=== PATIENT | female | born 1990 | race Caucasian/White ===

== ENCOUNTER 2019-04-25 22:14 | Inpatient (IN) ==
[2019-04-25] MEDS ORDERED: OXYTOCIN 30 UNITS/500 ML BAG IV PRN (22:51)
--- NOTE | 2019-04-25 22:57 | History & Physical Report ---
Date of Service April 25, 2019 Assessment & Plan (1) Term : (2) SROM (spontaneous rupture of membranes): admit, iv, labs. given initial bp, will check creat, lfts as well. see if develops spont labor pattern. if not will add pitocin. pt aware. fhts categ 1. History of Present Illness Chief Complaint: Leaking fluid since 905pm tonight. clear with white chunks. Primary Care Provider: Jazmine Maradiaga, DO 28yo at 39+wks ega presents to L&D with above cc. Noting some ctx now. continued trickle of fluid. +fm. no vb. pnc c/b 1. 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 Beliefs That Will Affect Care: None marital status: Current Living Situation: Spouse Other Information That Helps Us Care for You: No Feels Safe at Home: Yes Safety Concerns: Feels Safe At This Time Smoking Status: Never smoker Hx Alcohol Use: No Hx Substance Use: No Physical Exam Constitutional: WD/WN, vitals as above Respiratory: normal respiratory effort, lungs clear to auscultation Cardiovascular: Rate/Rhythm: regular rate and regular rhythm Gastrointestinal (Abdomen): Percussion/Palpation: abdomen soft (gravid efw 7#); abdomen nontender Neurologic: grossly normal Psychiatric: A+Ox3, euthymic affect Genitourinary: Manual OB Exam: + cervical dilation 3 cm, + cervical effacement 90%, + station -2 and + amniotic fluid (SROM, gross) clear and nitrazine positive OB Exam Monitor Tracing: + external FHT monitor used (130 mod variability), + external uterine monitor used (q2-3 with irritability), + category I and + normal FHT variability Results & Data Vital Signs (Past 12 Hours) Vital Signs Temp Pulse Resp BP 04/25/19 22:35 87 142/84 H 04/25/19 22:33 98.1 F 20
[2019-04-25 23:07] LABS: Hemoglobin 13.1 g/dL (12.0-16.0); Mean Corpuscular Hemoglobin 31.9 pg (25-34); Mean Corpuscular Volume 92.5 fL (80-100); Mean Platelet Volume 10.8 fL (7.4-10.4); Platelet Count 218 K/uL (130-400); RDW Coefficient of Variation 12.6 % (11.5-14.5); RDW Standard Deviation 42.4 fL (36.4-46.3); Red Blood Count 4.11 M/uL (4.2-5.4); White Blood Count 15.33 K/uL (4.8-10.8)
[2019-04-25 23:26] LABS: Albumin Level 2.8 gm/dl (3.4-5.0); BUN Creatinine Ratio 10.3 (10-20); Calcium 8.4 mg/dl (8.5-10.1); Creatinine Clr Calc Pharmacy 61.8 ml/min; Est GFR (Non-African American) 57.8; Potassium 3.6 mmol/L (3.5-5.1)
[2019-04-25 23:29] LABS: Albumin Globulin Ratio 0.7 (0.9-2); Bilirubin,Total 0.3 mg/dl (0.2-1); Globulin 4.1 gm/dl (2.5-4.0); Total Protein 6.9 gm/dl (6.4-8.2)
[2019-04-25 23:37] LABS: Mean Corpuscular Hgb Conc 34.5 g/dL (32-36)
[2019-04-26] MEDS: LACTATED RINGER'S 1,000 ML IV PRN ×3 (00:45→10:00)
[2019-04-26] MEDS ORDERED: ePHEDrine sulfate 50 MG/ML AMP ONE (00:48)
[2019-04-26] MEDS ORDERED: fentaNYL citrate 100 MCG/2 ML VIAL ONE (00:48)
[2019-04-26] MEDS ORDERED: BUPIVACAINE 0.25% 30 ML VIAL ONE (00:48)
[2019-04-26] MEDS ORDERED: fentaNYL 2MCG/ML ROPIV 1.25MG/ML 100 ML BAG EPI ONE (00:49)
--- NOTE | 2019-04-26 00:49 | Labor Progress Brief Note ---
Date of Service April 26, 2019 Subjective Reason For Note: Routine Evaluation and Requested By Patient pt noting increased pain with ctx. wants pain relief Assessment & Plan (1) Term : (2) SROM (spontaneous rupture of membranes): good cx change. desires epidural. fhts categ 1 Physical Exam Constitutional: WD/WN, vitals as above Genitourinary: Manual OB Exam: + cervical dilation 4 cm, + cervical effacement 100% and + station -1 OB Exam Monitor Tracing: + external FHT monitor used (125mod variability ), + external uterine monitor used (q2), + category I and + normal FHT variability Results & Data Vital Signs (Past 12 Hours) Vital Signs Temp Pulse Resp BP 04/26/19 00:14 76 143/84 H 04/25/19 23:00 20 04/25/19 22:40 18 04/25/19 22:35 87 142/84 H 04/25/19 22:33 98.1 F 20
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
[2019-04-26] MEDS ORDERED: NALOXONE HCL 0.4 MG/1 ML VIAL/CARP IV PRN (01:20)
[2019-04-26] MEDS ORDERED: ONDANSETRON INJ 2 MG/ML 2 ML VIAL IV PRN (01:20)
[2019-04-26] MEDS ORDERED: ePHEDrine sulfate 50 MG/ML AMP IV PRN (01:20)
[2019-04-26] MEDS ORDERED: DiphenhydrAMINE HCL 50 MG/ML VIAL IV PRN (01:20)
[2019-04-26] MEDS ORDERED: fentaNYL 2MCG/ML ROPIV 1.25MG/ML 100 ML BAG EPI PRN (01:20)
[2019-04-26] MEDS ORDERED: NALBUPHINE HCL INJ 10 MG/ML AMP IV PRN (01:20)
[2019-04-26] MEDS ORDERED: NALOXONE HCL 1 MG in SODIUM CHLORIDE 0.9% 1000ML 1,000 ML IV PRN (01:20)
[2019-04-26 02:14] LABS: Creatinine Urine Random 89.8 mg/dl; Protein Creatinine Ratio Urine 0.1 (0-0.2); Total Protein Urine Random 10.7 mg/dl (0-11.9)
[2019-04-26] MEDS ORDERED: OXYTOCIN 30 UNITS/500 ML BAG IV PRN ×2 (09:00→13:13)
--- NOTE | 2019-04-26 09:04 | Labor Progress Brief Note ---
Date of Service April 26, 2019 Subjective Patient pushing for about 1 hour per RN. Feels comfortable, has no urge to push but pushes with excellent effort when coached through each contraction. Assessment & Plan (1) Gestational hypertension: Patient admitted for SROM/Labor and has progressed to what was felt to be complete dilation, and has been pushing for about an hour. At this time I do not feel cervix is completely out of the way, and advise that since patient is able to rest without urge, that she do so until we confirm remaining cervix is gone. Will start pitocin as contractions are not Q2min and hopefully will help reduce cervix and make second stage more efficient. Patient expresses understanding. Trimester: third trimester Qualified Code(s): O13.3 - Gestational [-induced] hypertension without significant proteinuria, third trimester Present on Admission?: Yes Physical Exam Physical Exam: FHT Cat 1 Flowing Wells Q4-5 Cvx 100% effaced, but anterior lip is moving forward with each push, and is able to be manually reduced back over head by doctor's fingers. No swelling in the lip. But it does not stay back after it is reduced; comes forward again with each push. Fetus in DOA presentation, molding / caput both present. Results & Data Vital Signs (Past 12 Hours) Vital Signs Temp Pulse Resp BP Pulse Ox 04/26/19 08:56 112 H 98 04/26/19 08:51 91 H 97 04/26/19 08:46 86 98 04/26/19 08:44 103 H 140/62 04/26/19 08:41 91 H 97 04/26/19 08:36 108 H 98 04/26/19 08:31 101 H 99 04/26/19 08:28 97 H 136/68 04/26/19 08:26 100 H 98 04/26/19 08:21 105 H 100 04/26/19 08:16 123 H 99 04/26/19 08:12 100 H 128/61 04/26/19 08:11 101 H 100 04/26/19 08:06 91 H 99 04/26/19 08:01 88 99 04/26/19 07:57 80 131/69 04/26/19 07:56 91 H 99 04/26/19 07:51 91 H 100 04/26/19 07:46 122 H 100 04/26/19 07:43 80 141/72 H 04/26/19 07:41 77 100 04/26/19 07:36 85 100 04/26/19 07:31 75 100 04/26/19 07:27 75 137/66 04/26/19 07:26 74 100 04/26/19 07:21 78 100 04/26/19 07:16 77 100 04/26/19 07:13 99.3 F 81 22 138/87 04/26/19 07:11 81 100 04/26/19 07:06 80 100 04/26/19 07:05 80 89 L 04/26/19 07:01 75 100 04/26/19 06:58 76 134/75 04/26/19 06:56 82 97 04/26/19 06:51 90 91 04/26/19 06:46 74 100 04/26/19 06:43 71 130/67 04/26/19 06:41 82 99 04/26/19 06:37 98.4 F 04/26/19 06:36 75 100 04/26/19 06:31 76 99 04/26/19 06:28 71 137/70 04/26/19 06:26 72 100 04/26/19 06:21 75 100 04/26/19 06:16 74 100 04/26/19 06:13 78 130/74 04/26/19 06:11 72 100 04/26/19 06:06 75 100 04/26/19 06:01 73 100 04/26/19 05:58 71 140/82 04/26/19 05:56 74 100 04/26/19 05:51 75 100 04/26/19 05:46 72 100 04/26/19 05:43 72 134/66 04/26/19 05:41 73 100 04/26/19 05:36 73 99 04/26/19 05:31 77 100 04/26/19 05:28 75 129/66 04/26/19 05:26 75 100 04/26/19 05:21 93 H 100 04/26/19 05:16 75 100 04/26/19 05:12 80 130/74 04/26/19 05:11 76 100 04/26/19 05:06 71 100 04/26/19 05:01 75 100 04/26/19 04:58 76 132/76 04/26/19 04:56 79 100 04/26/19 04:51 69 100 04/26/19 04:46 71 100 04/26/19 04:44 74 145/79 H 04/26/19 04:41 72 100 04/26/19 04:36 83 100 04/26/19 04:31 75 100 04/26/19 04:28 97.9 F 79 18 128/73 04/26/19 04:26 74 100 04/26/19 04:21 66 100 04/26/19 04:16 67 100 04/26/19 04:13 70 137/85 04/26/19 04:11 69 100 04/26/19 04:06 71 100 04/26/19 04:01 68 100 04/26/19 03:58 66 151/83 H 04/26/19 03:56 68 100 04/26/19 03:51 69 99 04/26/19 03:46 67 98 04/26/19 03:43 66 140/72 04/26/19 03:41 70 100 04/26/19 03:36 73 100 04/26/19 03:31 70 100 04/26/19 03:27 69 139/83 04/26/19 03:26 69 100 04/26/19 03:21 67 100 04/26/19 03:16 71 100 04/26/19 03:14 73 137/84 04/26/19 03:11 68 100 04/26/19 03:06 75 100 04/26/19 03:01 77 100 04/26/19 02:59 68 149/80 H 04/26/19 02:56 67 100 04/26/19 02:51 78 100 04/26/19 02:46 68 98 04/26/19 02:45 18 04/26/19 02:42 71 139/74 04/26/19 02:41 81 100 04/26/19 02:36 98.1 F 82 18 99 04/26/19 02:31 73 100 04/26/19 02:30 18 04/26/19 02:27 68 148/81 H 04/26/19 02:26 69 100 04/26/19 02:21 71 98 04/26/19 02:16 72 99 04/26/19 02:15 18 04/26/19 02:13 75 142/75 H 04/26/19 02:11 85 98 04/26/19 02:06 74 99 04/26/19 02:01 76 99 04/26/19 02:00 18 04/26/19 01:57 72 139/67 04/26/19 01:56 72 99 04/26/19 01:51 74 100 04/26/19 01:49 71 140/65 04/26/19 01:46 75 99 04/26/19 01:45 18 04/26/19 01:41 70 100 04/26/19 01:36 79 100 04/26/19 01:31 69 100 04/26/19 01:27 72 143/70 H 04/26/19 01:26 77 100 04/26/19 01:24 82 142/73 H 04/26/19 01:22 72 151/86 H 04/26/19 01:21 71 100 04/26/19 01:19 71 136/92 04/26/19 01:17 75 136/75 04/26/19 01:16 79 100 04/26/19 01:14 82 93 04/26/19 01:11 80 100 04/26/19 01:09 96 H 151/70 H 04/26/19 01:06 80 160/90 H 100 04/26/19 01:01 90 98 04/26/19 00:14 97.5 F L 76 143/84 H 04/25/19 23:00 20 04/25/19 22:40 18 04/25/19 22:35 87 142/84 H 04/25/19 22:33 98.1 F 20
--- NOTE | 2019-04-26 13:04 | Delivery Summary ---
Vaginal Delivery Summary Date of Service April 26, 2019 Vaginal Delivery Summary DIAGNOSES: 1. Woods intrauterine at 39 1/7 gestation. 2. Spontaneous onset of labor. 3. Group B Streptococcus Neg. PROCEDURE: Spontaneous vaginal delivery and repair of 2nd degree midline episiotomy. SURGEON: Evelyn Murphy MD. TANK SYSTEMS MAINTAINER: None. ESTIMATED BLOOD LOSS: 300 mL. COMPLICATIONS: None. PLACENTA: Spontaneous and intact with a 3-vessel cord. DISPOSITION: Stable to labor and delivery. DESCRIPTION: The patient pushed well and brought the head to in SEAN position. The second stage had lasted a total of over 3 hours and the phase was prolonged. The patient was becoming exhausted. She was offered VAVD and/or episiotomy to expedite delivery. She elected for episiotomy. The perineum was infiltrated with 8cc 1% plain lidocaine. With the next push, bandage scissors were used to create a small midline episiotomy. With the following maternal pushing effort, the infant's head delivered. The shoulders delivered easily with a maternal pushing effort. There was a loose nuchal cord. The right shoulder was anterior. The shoulders and body delivered without any difficulty, and the was placed on the maternal abdomen. It was vigorous and moving all extremities, and making respiratory efforts. The cord was doubly clamped by the MD and then cut by the FOB. The placenta delivered spontaneously and was noted to be intact and with a 3VC as well as a succenturiate lobe. The cervix, vagina and perineum were examined and were found to have only the episiotomy, without extension, which was repaired as per usual for a second degree laceration, including a crown suture. There was also a left labial abrasion which was hemostatic and not repaired. The fundus was firm and lochia minimal immediately after delivery.
[2019-04-26] MEDS ORDERED: DIPHTHERIA/TETANUS/PERTUSSIS 0.5 ML SYR/VIAL IM ONE (13:13)
[2019-04-26] MEDS ORDERED: BENZOCAINE 20% AER SPR 82.5 GM CAN EXT PRN (13:13)
[2019-04-26] MEDS ORDERED: OXYCODONE/ACETAMINOPHEN 5mg/325mg TAB PO PRN (13:13)
[2019-04-26] MEDS ORDERED: SUPERCREAM 0.870% 15 GM JAR EXT PRN (13:13)
[2019-04-26] MEDS ORDERED: HYDROCORTISONE ACETATE 25 MG SUPP PR PRN (13:13)
[2019-04-26] MEDS ORDERED: ACETAMINOPHEN 325 MG TAB PO PRN (13:13)
[2019-04-26] MEDS ORDERED: LACTATED RINGER'S 1,000 ML IV SCH (13:20)
[2019-04-26] MEDS: IBUPROFEN 600 MG TAB PO PRN (13:22)
--- NOTE | 2019-04-26 14:25 | Anesthesia Procedure Note ---
Date of Service April 26, 2019 Anesthesia Post Epidural Note Vital Signs Vital Signs: Temp Pulse Resp BP Pulse Ox 37.1 C 99 H 20 128/66 99 04/26/19 13:19 04/26/19 14:19 04/26/19 13:19 04/26/19 14:19 04/26/19 12:41 Pain Intensity Abdomen: Pain Intensity: 1 Notes Mental Status: alert / awake / arousable and participated in evaluation Nausea / Vomiting: adequately controlled Pain: adequately controlled Airway Patency, RR, SpO2: stable & adequate BP & HR: stable & adequate Hydration State: stable & adequate Neuraxial Anesthesia: was administered and sensory block is resolving Anesthetic Complications: no major complications apparent
[2019-04-26] MEDS: DOCUSATE SODIUM 100 MG CAP PO SCH (20:08)
[2019-04-27 06:55] LABS: Hematocrit (blood only) 32.6 % (37-47); Hemoglobin 11.2 g/dL (12.0-16.0); Mean Corpuscular Hemoglobin 31.7 pg (25-34); Mean Corpuscular Hgb Conc 34.4 g/dL (32-36); Mean Corpuscular Volume 92.4 fL (80-100); Mean Platelet Volume 10.4 fL (7.4-10.4); Platelet Count 208 K/uL (130-400); RDW Standard Deviation 43.7 fL (36.4-46.3); Red Blood Count 3.53 M/uL (4.2-5.4); White Blood Count 23.81 K/uL (4.8-10.8)
[2019-04-27 07:25] LABS: BUN Creatinine Ratio 13.7 (10-20); Calcium 8.2 mg/dl (8.5-10.1); Creatinine Clr Calc Pharmacy 78.5 ml/min; Est GFR (African American) 89.4; Est GFR (Non-African American) 77.2; Potassium 3.6 mmol/L (3.5-5.1)
[2019-04-27 07:29] LABS: Albumin Globulin Ratio 0.6 (0.9-2); Bilirubin,Total 0.5 mg/dl (0.2-1); Globulin 3.2 gm/dl (2.5-4.0); Total Protein 5.2 gm/dl (6.4-8.2)
--- NOTE | 2019-04-27 07:43 | Obstetrical Progress Note ---
Date of Service <Darline Moreno MD - Last Filed: 04/27/19 07:43> April 27, 2019 Assessment & Plan <Darline Moreno MD - Last Filed: 04/27/19 07:43> (1) Encounter for care and examination after delivery: 28 yo PPD1 s/p complicated by gestational HTN. Blood pressures have been within normal range since mid afternoon yesterday without medication. Ambulating, tolerating regular diet, bottle feeding. Continue supportive care. Discharge home tomorrow. Day #:: 1 Subjective <Darline Moreno MD - Last Filed: 04/27/19 07:43> Ambulation: ambulating normally Voiding: no voiding problems Passing Gas:: Yes Diet Tolerance:: regular diet Lochia:: Moderate Feeding Type:: bottle feeding Current Pain Level(1-10): 0 Physical Exam <Darline Moreno MD - Last Filed: 04/27/19 07:43> Constitutional well developed and well nourished Respiratory normal respiratory effort; no respiratory distress, no labored breathing and no cough Auscultation: no crackles, no rales, no rhonchi and no wheezes Cardiovascular Rate/Rhythm: regular rate and regular rhythm Heart Sounds: no gallop, no murmur and no cardiac rub Extremities: no pedal edema Gastrointestinal (Abdomen) Inspection/Auscultation: + abdomen distended and normal bowel sounds Percussion/Palpation: abdomen soft; abdomen nontender and no guarding Genitourinary Uterus firm, palpable at umbilicus, nontender to palpation. Results & Data <Darline Moreno MD - Last Filed: 04/27/19 07:43> Vital Signs (Past 12 Hours) Vital Signs Temp Pulse Resp BP 04/27/19 03:35 36.6 C 73 18 116/71 04/26/19 23:05 36.7 C 69 18 121/72 <Evelyn Murphy MD - Last Filed: 04/27/19 08:49> Co-Signing Physician Notes I have reviewed the resident's note and examined the patient myself, and agree with the note above. The creatinine level is normalizing and now dropped to 1. Would anticipate this continues to drop but at this point would not require further serial labs for discharge home. Resident Activity Tracking <Darline Moreno MD - Last Filed: 04/27/19 07:43> Resident Involvement: Resident Care Provided Care Provided: OB Delivery
[2019-04-27] MEDS: DOCUSATE SODIUM 100 MG CAP PO SCH ×2 (09:05→20:27)
[2019-04-27] MEDS: PRENATAL VITAMIN 1 TAB PO SCH (09:05)
[2019-04-27] MEDS: IBUPROFEN 600 MG TAB PO PRN (15:26)
--- NOTE | 2019-04-28 06:20 | Obstetrical Progress Note ---
Date of Service <Darline Moreno MD - Last Filed: 04/28/19 07:01> April 28, 2019 Assessment & Plan <Darline Moreno MD - Last Filed: 04/28/19 07:01> (1) Encounter for care and examination after delivery: 28 yo F PPD2 s/p , complicated by Gestational HTN. Blood pressures have been within normal range since day of delivery. Highest in last 24 hours was 140/82. Re-ordered liver panel this AM to trend values. AST stable at 52, ALT 44, Alk Phos down to 125. WBC elevated at 23.81 yesterday, up from 15.33 04/26 but patient has been afebrile, describes no subjective symptoms of infection. Discharge home today with close follow up. Day #:: 2 Subjective <Darline Moreno MD - Last Filed: 04/28/19 07:01> Ambulation: limited ambulation Voiding: no voiding problems Passing Gas:: Yes Diet Tolerance:: regular diet Lochia:: Small Feeding Type:: bottle feeding Current Pain Level(1-10): 0 Doing well this AM. No complaints. Constitutional: + fatigue; no fever and no chills Respiratory: no cough and no dyspnea No shortness of breath Cardiovascular: + edema; no chest pain, no syncope and no calf pain Breast: no breast pain Gastrointestinal: no abdominal pain, no nausea, no vomiting, no cramping, no constipation and no diarrhea/loose stools Genitourinary (female): no dysuria and no difficulty urinating Neurologic: no headache(s) Physical Exam <Darline Moreno MD - Last Filed: 04/28/19 07:01> Constitutional well developed and well nourished Respiratory normal respiratory effort; no respiratory distress, no labored breathing and no cough Auscultation: no crackles, no rales, no rhonchi and no wheezes Cardiovascular Rate/Rhythm: regular rate and regular rhythm Heart Sounds: no gallop, no murmur and no cardiac rub Extremities: no pedal edema Gastrointestinal (Abdomen) Inspection/Auscultation: + abdomen distended and normal bowel sounds Percussion/Palpation: abdomen soft; no guarding Musculoskeletal no tenderness to palpation of calves bilaterally Genitourinary Uterus small and firm, palpable in midline at level of umbilicus, some tenderness to palpation. Results & Data <Darline Moreno MD - Last Filed: 04/28/19 07:01> Vital Signs (Past 12 Hours) Vital Signs Temp Pulse Resp BP 04/28/19 00:20 36.5 C 67 18 139/87 Laboratory Results WBC 23.81 K/uL (4.8-10.8) H 04/27/19 06:24 RBC 3.53 M/uL (4.2-5.4) L 04/27/19 06:24 Hgb 11.2 g/dL (12.0-16.0) L 04/27/19 06:24 Hct 32.6 % (37-47) L 04/27/19 06:24 MCV 92.4 fL (80-100) 04/27/19 06:24 MCH 31.7 pg (25-34) 04/27/19 06:24 MCHC 34.4 g/dL (32-36) 04/27/19 06:24 RDW Std Deviation 43.7 fL (36.4-46.3) 04/27/19 06:24 RDW Coeff of Ai 13.0 % (11.5-14.5) 04/27/19 06:24 Plt Count 208 K/uL (130-400) 04/27/19 06:24 MPV 10.4 fL (7.4-10.4) 04/27/19 06:24 Sodium 142 mmol/L (136-145) 04/27/19 06:24 Potassium 3.6 mmol/L (3.5-5.1) 04/27/19 06:24 Chloride 109 mmol/L (98-107) H 04/27/19 06:24 Carbon Dioxide 27 mmol/L (21-32) 04/27/19 06:24 Anion Gap 6.0 (3-11) 04/27/19 06:24 BUN 14 mg/dl (7-18) 04/27/19 06:24 Creatinine 0.74 mg/dl (0.6-1.2) 04/28/19 05:33 Est Cr Clr Drug Dosing 106.1 ml/min 04/28/19 05:33 Est GFR ( Amer) 128.7 04/28/19 05:33 Est GFR (Non-Af Amer) 111.0 04/28/19 05:33 BUN/Creatinine Ratio 13.7 (10-20) 04/27/19 06:24 Glucose 63 mg/dl (70-99) L 04/27/19 06:24 Calcium 8.2 mg/dl (8.5-10.1) L 04/27/19 06:24 Total Bilirubin 0.3 mg/dl (0.2-1) 04/28/19 05:33 Direct Bilirubin < 0.1 mg/dl (0-0.2) 04/28/19 05:33 AST 52 U/L (15-37) H 04/28/19 05:33 ALT 44 U/L (12-78) 04/28/19 05:33 Alkaline Phosphatase 125 U/L (45-117) H 04/28/19 05:33 Total Protein 5.3 gm/dl (6.4-8.2) L 04/28/19 05:33 Albumin 2.1 gm/dl (3.4-5.0) L 04/28/19 05:33 Globulin 3.2 gm/dl (2.5-4.0) 04/27/19 06:24 Albumin/Globulin Ratio 0.6 (0.9-2) L 04/27/19 06:24 Ur Random Creatinine 89.8 mg/dl 04/26/19 01:30 U Random Total Protein 10.7 mg/dl (0-11.9) 04/26/19 01:30 Protein/Creatinin Ratio 0.1 (0-0.2) 04/26/19 01:30 <Dandre Cuevas Jr, MD, FACOG - Last Filed: 04/28/19 07:52> Co-Signing Physician Notes Resident Physician Supervision Note: I was present with Dr. Moreno during the history and exam. I discussed the case with the resident and agree with the findings and plan as documented in the note. Any exceptions or clarifications are listed here: Doing well, mild elevation in LFT, CR trending downward, BP stable. OK for D/C, instructions given, f/u in 6 weeks for pp check. Documented By: Dandre Cuevas Jr, MD, FACOG Resident Activity Tracking <Darline Moreno MD - Last Filed: 04/28/19 07:01> Resident Involvement: Resident Care Provided Care Provided: OB Delivery
[2019-04-28 06:39] LABS: Alanine Aminotransferase 44 U/L (12-78); Albumin Level 2.1 gm/dl (3.4-5.0); Aspartate Aminotransferase 52 U/L (15-37); Bilirubin Direct < 0.1 mg/dl (0-0.2); Creatinine Clr Calc Pharmacy 106.1 ml/min; Est GFR (African American) 128.7
[2019-04-28 06:42] LABS: Alkaline Phosphatase 125 U/L (45-117); Bilirubin,Total 0.3 mg/dl (0.2-1); Total Protein 5.3 gm/dl (6.4-8.2)
[2019-04-28] MEDS: PRENATAL VITAMIN 1 TAB PO SCH (08:16)
[2019-04-28] MEDS: DOCUSATE SODIUM 100 MG CAP PO SCH (08:16)
== END 2019-04-28 12:02 | disposition home or self-care (01) | DRG 807 ==
LOC: OPB 22:14 → 4S1 22:15 → 4S2 04-26 16:33

== ENCOUNTER 2021-12-03 07:24 | Inpatient (IN) ==
[2021-12-03] MEDS ORDERED: OXYTOCIN 30 UNITS/500 ML BAG IV PRN ×3 (07:44→18:01)
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
[2021-12-03 08:42] LABS: Hematocrit (blood only) 37.3 % (37-47); Hemoglobin 13.1 g/dL (12.0-16.0); Mean Corpuscular Hgb Conc 35.1 g/dL (32-36); Mean Platelet Volume 10.6 fL (7.4-10.4); Platelet Count 208 K/uL (130-400); RDW Standard Deviation 44.4 fL (36.4-46.3); Red Blood Count 3.97 M/uL (4.2-5.4); White Blood Count 10.12 K/uL (4.8-10.8)
[2021-12-03] MEDS: LACTATED RINGER'S 1,000 ML IV PRN ×2 (09:12→14:15)
[2021-12-03] MEDS ORDERED: SODIUM CHLORIDE 0.9% INJ 10 ML VIAL ONE (14:19)
[2021-12-03] MEDS ORDERED: BUPIVACAINE 0.25% 30 ML VIAL ONE (14:19)
[2021-12-03] MEDS ORDERED: fentaNYL citrate 100 MCG/2 ML VIAL ONE (14:19)
[2021-12-03] MEDS ORDERED: ePHEDrine sulfate 50 MG/ML AMP ONE (14:19)
[2021-12-03] MEDS ORDERED: fentaNYL 2MCG/ML ROPIVACAINE 1.25MG/ML 100 ML BAG EPI ONE (14:20)
--- NOTE | 2021-12-03 15:50 | Labor Progress Brief Note ---
Date of Service December 03, 2021 Subjective comfortable after epidural Assessment & Plan (1) with 39 completed weeks gestation: Plan: arom. continue pitocin. fetus category one. anticipate . Admission and Anticipated Discharge Date Admission Date: December 03, 2021 Physical Exam Physical Exam: cx--4+/75/-2 arom--clear toco--pit at 15, runs of contractions to q 3min efm--130s wtih mod variability, accels present, no decels Results & Data ([place]) Vital Signs (Past 12 Hours) Vital Signs Temp Pulse Resp BP Pulse Ox 12/03/21 15:44 79 115/60 96 12/03/21 15:42 69 117/57 L 12/03/21 15:39 69 170/74 H 96 12/03/21 15:35 68 107/55 L 12/03/21 15:34 64 96 12/03/21 15:30 18 12/03/21 15:29 71 115/56 L 97 12/03/21 15:25 68 107/53 L 12/03/21 15:24 71 97 12/03/21 15:19 67 97 12/03/21 15:17 36.6 C 70 18 123/58 L 12/03/21 15:15 74 118/56 L 12/03/21 15:14 76 97 12/03/21 15:13 75 107/57 L 12/03/21 15:11 78 112/59 L 12/03/21 15:09 75 106/58 L 98 12/03/21 15:07 69 109/59 L 12/03/21 15:05 76 110/69 12/03/21 15:04 77 97 12/03/21 15:02 73 110/68 12/03/21 15:00 16 12/03/21 14:59 82 97 12/03/21 14:54 74 99 12/03/21 14:49 91 H 98 12/03/21 14:44 75 100 12/03/21 14:39 71 100 12/03/21 14:37 68 109/71 12/03/21 14:34 69 99 12/03/21 14:29 73 98 12/03/21 14:24 67 96 12/03/21 14:19 71 98 12/03/21 14:14 74 99 12/03/21 13:20 78 124/67 12/03/21 12:12 70 116/67 12/03/21 11:20 36.5 C 71 18 111/67 12/03/21 10:22 80 121/81 12/03/21 07:39 86 119/64 12/03/21 07:36 36.9 C 18 Coding Level of Care Code None Diagnoses with 39 completed weeks gestation Z3A.39
[2021-12-03] MEDS ORDERED: NALOXONE HCL 0.4 MG/1 ML VIAL/CARP IV PRN (16:30)
[2021-12-03] MEDS ORDERED: diphenhydrAMINE 50 MG/ML VIAL IV PRN (16:30)
[2021-12-03] MEDS ORDERED: ePHEDrine sulfate 50 MG/ML AMP IV PRN (16:30)
[2021-12-03] MEDS ORDERED: PROMETHAZINE HCL 6.25 MG in SODIUM CHLORIDE 0.9% 50 ML IV PRN (16:30)
[2021-12-03] MEDS ORDERED: fentaNYL 2MCG/ML ROPIVACAINE 1.25MG/ML 100 ML BAG EPI PRN (16:30)
[2021-12-03] MEDS ORDERED: ONDANSETRON INJ 2 MG/ML 2 ML VIAL IV PRN (16:30)
[2021-12-03] MEDS ORDERED: NALBUPHINE HCL INJ 10 MG/ML AMP IV PRN (16:30)
[2021-12-03] MEDS ORDERED: NALOXONE HCL 1 MG in SODIUM CHLORIDE 0.9% 1000ML 1,000 ML IV PRN (16:30)
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
[2021-12-03] MEDS ORDERED: ACETAMINOPHEN 325 MG TAB PO PRN (18:01)
[2021-12-03] MEDS ORDERED: BENZOCAINE 20% AER SPR 82.5 GM CAN EXT PRN (18:01)
[2021-12-03] MEDS ORDERED: DIPHTHERIA/TETANUS/PERTUSSIS 0.5 ML SYR/VIAL IM ONE (18:01)
[2021-12-03] MEDS ORDERED: bisacodyL 10 MG SUPP PR PRN (18:01)
[2021-12-03] MEDS ORDERED: oxyCODONE/ACETAMINOPHEN 5mg/325mg TAB PO PRN (18:01)
[2021-12-03] MEDS ORDERED: HYDROCORTISONE ACETATE 25 MG SUPP PR PRN (18:01)
--- NOTE | 2021-12-03 18:06 | Delivery Summary ---
Vaginal Delivery Summary Date of Service December 03, 2021 Vaginal Delivery Summary and 1st Degree LAC Pre-operative Diagnosis: at 39 2/7 weeks elective induction Post-operative Diagnosis: same Procedure: pitocin induction epidural arom first degree and right labial lac and repair EBL: 300cc Anesthesia: epidural Procedure: Patient presented to labor and delivery for elective induction. Cervix favorable. Started with pitocin, got epidural and then arom for clear fluid. The patient progressed to c/c/+2. The patient pushed for 2 contractions to deliver a viable male infant in marco a position. The nose and mouth were bulb suctioned on the perineum and the rest of the was then delivered without difficulty. The baby was vigorous. The nose and mouth were again bulb suctioned and the infant was placed in the maternal abdomen for dryin g and attention. Cord was clamped and cut at one minute of life. Cord blood and segment obtained. Placenta delivered spontaneous, intact with a three vessel cord. Cervix/sulci/rectum were intact. A first degree perineal laceration was repaired in the normal standard fashion as well as a small right labial laceration. Hemostasis obtained with dilute pitocin and fundal massage. Apgars were 9/9. Mother and baby doing well at the end of the delivery. [facility] Vaginal Delivery Charge Delivery Type Details: and 1st Degree LAC
--- NOTE | 2021-12-03 18:46 | Anesthesia Procedure Note ---
Date of Service December 03, 2021 Anesthesia Post Epidural Note Vital Signs Vital Signs: Temp Pulse Resp BP Pulse Ox 36.6 C 76 18 113/61 97 12/03/21 15:17 12/03/21 18:36 12/03/21 16:45 12/03/21 18:36 12/03/21 17:59 Pain Intensity Abdomen: Pain Intensity: 6 Notes Mental Status: alert / awake / arousable Nausea / Vomiting: adequately controlled Pain: adequately controlled Airway Patency, RR, SpO2: stable & adequate BP & HR: stable & adequate Hydration State: stable & adequate Neuraxial Anesthesia: was administered and sensory block is resolving Anesthetic Complications: no major complications apparent and Pt Satisfied with anesthetic care Epidural: Removed without complications and With tip intact
[2021-12-03] MEDS: IBUPROFEN 600 MG TAB PO PRN (23:42)
[2021-12-03] MEDS: DOCUSATE SODIUM 100 MG CAP PO SCH (23:43)
--- NOTE | 2021-12-04 06:01 | Obstetrical Progress Note ---
Date of Service <Zulma Singh MD - Last Filed: 12/04/21 07:02> December 04, 2021 Assessment & Plan <Zulma Singh MD - Last Filed: 12/04/21 07:02> (1) Vaginal delivery: 31 yo now PPD1 from at 39wk2d -Discharge home later today per pt preference, instructions reviewed with patient -Vitals reviewed- HDS, afebrile -Hgb 13, stable -F/u in 6 weeks with OB <Prerna Ortiz MD, FACOG - Last Filed: 12/04/21 07:12> (1) Vaginal delivery: Subjective <Zulma Singh MD - Last Filed: 12/04/21 07:02> Ambulation: ambulating normally Voiding: no voiding problems Passing Gas:: Yes Diet Tolerance:: regular diet Lochia:: Small Feeding Type:: breast feeding (pumping) Current Pain Level(1-10): 0 Pt doing well overall, no acute complaints or distress. Pain well controlled with medication. Pumping going well. Would like to go home today. Review of Systems Denies fever/chills. Denies dyspnea, cough. Denies chest pain. Denies breast pain or discharge. Denies dysuria. Denies headache. Denies back pain. Physical Exam <Zulma Singh MD - Last Filed: 12/04/21 07:02> General: Alert, oriented, no acute distress Cardiac: Regular rate and rhythm, normal S1, S2. No murmurs appreciated. Respiratory: Clear to auscultation b/l with good air flow entry, symmetric chest rise and fall. No wheezes or crackles. No increased work of breathing or accessory muscle use Abdomen: Soft, nontender, nondistended. Fundus firm and palpable at 2 cm below umbilicus. No guarding or rebound. Skin: No rashes or lesions Extremities: Warm, dry, well-perfused with capillary refill <2s b/l. No lower extremity edema, erythema, swelling or calf tenderness b/l. Results & Data ([facility]) <Zulma Singh MD - Last Filed: 12/04/21 07:02> Vital Signs (Past 12 Hours) Vital Signs Temp Pulse Pulse Resp BP BP Pulse Ox 12/04/21 05:29 36.9 C 64 18 113/72 99 12/04/21 00:09 36.9 C 59 L 18 117/78 98 12/03/21 21:00 36.9 C 84 18 117/68 98 12/03/21 20:06 77 122/68 12/03/21 20:05 77 18 122/68 12/03/21 19:36 81 124/59 L 12/03/21 19:35 81 18 124/59 L 12/03/21 19:06 78 128/66 12/03/21 19:05 36.9 C 78 18 128/66 12/03/21 18:51 81 125/73 12/03/21 18:36 76 113/61 12/03/21 18:21 62 113/56 L 12/03/21 18:05 75 112/62 12/03/21 18:00 20 12/03/21 17:59 75 113/55 L 97 <Prerna Ortiz MD, FACOG - Last Filed: 12/04/21 07:12> Co-Signing Physician Notes Resident Physician Supervision Note: I interviewed and examined the patient. Discussed with Dr. Singh and agree with findings and plan as documented in the note. Any exceptions or clarifications are listed here: Doing well. Plan d/c later today if all well. Instructions reviewed. Documented By: Prerna Ortiz MD, FACOG Resident Activity Tracking <Zulma Singh MD - Last Filed: 12/04/21 07:02> Resident Involvement: Resident Care Provided Care Provided: OB Delivery
[2021-12-04 06:39] LABS: Hematocrit (blood only) 38.7 % (37-47)
[2021-12-04] MEDS ORDERED: PRENATAL VITAMIN 1 TAB PO SCH (08:00)
[2021-12-04] MEDS: DOCUSATE SODIUM 100 MG CAP PO SCH (08:11)
[2021-12-04] MEDS: IBUPROFEN 600 MG TAB PO PRN (08:14)
[2021-12-04] MEDS ORDERED: bisacodyL 5 MG TABEC PO SCH (20:00)
== END 2021-12-04 19:05 | disposition home or self-care (01) | DRG 807 ==
LOC: 4S1 07:24 → 4E1 20:41